=== PATIENT | female | born 2000 | race Caucasian/White ===

== ENCOUNTER 2018-08-17 15:00 | Emergency (ER) | payer MEDICAID, OTHER | END 2018-08-17 17:14 | disposition home or self-care (01) | LOC: FTE 17:14 | DX: J06.9 Acute upper respiratory infection, unspecified (principal) | CPT/HCPCS: 99283; Z7502 ==

== ENCOUNTER → 2018-10-07 | Emergency (ER) | payer SELFPAY, MEDICAID ==
[2018-10-07] MEDS: FAMOTIDINE 20 MG TAB PO (10:42)
[2018-10-07] MEDS: KETOROLAC 30 MG INJ IM (10:43)
[2018-10-07] MEDS: LIDOCAINE/MYLANTA 40 ML BTL PO (10:43)
[2018-10-07 10:48] LABS: ADD MAN DIFF? NO
[2018-10-07 10:50] LABS: BASOPHILS % 0.6 % (0.0-2.0); EOSINOPHILS # 0.1 10^3/ul (0.0-0.5); EOSINOPHILS % 1.9 % (0.0-7.0); HEMATOCRIT 44.6 % (37.0-47.0); HEMOGLOBIN 14.2 g/dl (12.0-16.0); LYMPHOCYTES # 1.8 10^3/ul (0.8-2.9); LYMPHOCYTES % 29.1 % (18.0-55.0); MEAN CORPUSCULAR HEMOGLOBIN 29.1 pg (29.0-33.0); MEAN CORPUSCULAR HGB CONC 31.8 g/dl (32.0-37.0); MEAN CORPUSCULAR VOLUME 91.4 fl (72.0-104.0); MONOCYTE # 0.4 10^3/ul (0.3-0.9); MONOCYTES % 6.6 % (0.0-13.0); NEUTROPHIL # 3.8 10^3/ul (1.6-7.5); NEUTROPHILS % 61.6 % (30.0-74.0); PLATELET COUNT 247 10^3/UL (140-415); RED BLOOD COUNT 4.88 10^6/ul (4.20-5.40); RED CELL DISTRIBUTION WIDTH 13.2 % (11.5-14.5)
[2018-10-07 10:50] LABS: WHITE BLOOD COUNT 6.2 10^3/ul (4.8-10.8)
[2018-10-07 10:54] LABS: ADD UMIC YES; UR ASCORBIC ACID NEGATIVE (NEGATIVE); UR BILIRUBIN (Dip) NEGATIVE (NEGATIVE); UR BLOOD (Dip) NEGATIVE (NEGATIVE); UR CLARITY CLEAR (CLEAR); UR COLOR YELLOW (YELLOW); UR GLUCOSE (Dip) NEGATIVE (NEGATIVE); UR KETONES (Dip) NEGATIVE (NEGATIVE); UR LEUKOCYTE ESTERASE (Dip) TRACE Leu/ul (NEGATIVE); UR MUCUS FEW /HPF (NONE SEEN); UR NITRITE (Dip) NEGATIVE (NEGATIVE); UR RBC 1 /HPF (0-5); UR SPECIFIC GRAVITY (Dip) 1.025 (1.003-1.030); UR SQUAMOUS EPITHELIAL CELL FEW /HPF (FEW); UR TOTAL PROTEIN (Dip) NEGATIVE (NEGATIVE); UR UROBILINOGEN (Dip) NEGATIVE (NEGATIVE); UR WBC 6 /HPF (0-5)
[2018-10-07 11:22] LABS: ALANINE AMINOTRANSFERASE 27 IU/L (13-69); ALBUMIN 4.8 g/dl (3.3-4.9); ALBUMIN/GLOBULIN RATIO 1.37; ALKALINE PHOSPHATASE 96 IU/L (42-121); ANION GAP 9 (5-13); ASPARTATE AMINO TRANSFERASE 26 IU/L (15-46); BILIRUBIN,INDIRECT 0.4 mg/dl (0-1.1); BILIRUBIN,TOTAL 0.4 mg/dl (0.2-1.3); BLOOD UREA NITROGEN 12 mg/dl (7-20); CALCIUM 10.5 mg/dl (8.4-10.2); CARBON DIOXIDE 29 mmol/L (21-31); CHLORIDE 104 mmol/L (97-110); Estimated GFR > 60 mL/min (>60); GLUCOSE 105 mg/dl (70-220); LIPASE 58 U/L (23-300); POTASSIUM 4.6 mmol/L (3.5-5.1); SODIUM 142 mmol/L (135-144); TOTAL PROTEIN 8.3 g/dl (6.1-8.1)
== END | disposition home or self-care (01) ==
LOC: FTE 09:50
DX: R10.13 Epigastric pain (principal)
CPT/HCPCS: 36415; 74176; 76705; 80053; 81001; 81025; 83690; 85025; 96372; 99285-25

== ENCOUNTER 2019-02-03 22:01 | Emergency (ER) | payer OTHER | END 2019-02-04 00:34 | disposition home or self-care (01) | LOC: E/R 22:01 | DX: J02.9 Acute pharyngitis, unspecified (principal) | CPT/HCPCS: 99283; Z7502 ==